=== PATIENT | male | born 1975 | race Caucasian/White ===

== ENCOUNTER 2018-01-13 22:42 | Emergency (ER) | payer OTHER ==
[2018-01-13] MEDS ORDERED: Acetaminophen 500 MG TAB ONE (23:07)
[2018-01-13] MEDS ORDERED: Metoclopramide HCl 10 MG/2 ML VIAL ONE (23:07)
--- NOTE | 2018-01-13 23:50 | CT ---
HEAD CT WITHOUT CONTRAST: Date: 01-13-18 Comparison: None. History: Occipital headache, pain. Technique: Serial axial CT imaging at 5 mm intervals from vertex through skull base without contrast. FINDINGS: Imaged paranasal sinuses/mastoid air cells well aerated. No displaced calvarial fracture. No intracra nial hemorrhage, midline shift, mass effect, or ventricular enlargement. IMPRESSION: No acute findings. POS: [facility]
== END 2018-01-14 00:20 | disposition home or self-care (01) ==
LOC: ERS 22:42
DX: R51 Headache (principal); E11.9 Type 2 diabetes mellitus without complications; Z79.84 Long term (current) use of oral hypoglycemic drugs; Z79.899 Other long term (current) drug therapy
CPT/HCPCS: 36416; 64400; 70450; 96365; J2765